=== PATIENT | male | born 1930 | race Caucasian/White ===

== ENCOUNTER → 2017-11-12 | Outpatient (CLI) | payer MEDICARE ==
[~2017-11-12] MED LIST: CELE200; CEPH500 PO; OXYACE5T PO; OXYACE7.5T PO; PRAV20; WARF6
== END | disposition home or self-care (01) ==
LOC: LAB SHORT 10:11 → PLD 10:11
DX: C44.629 Squamous cell carcinoma of skin of left upper limb, including shoulder (principal)
CPT/HCPCS: 88305

== ENCOUNTER → 2018-06-18 | Outpatient (CLI) | payer MEDICARE, OTHER ==
[~2018-06-18] MED LIST changes: +B-100 COMPLEX100 MG PO; +CEFD300 PO; +CELE200 PO; +FINA5 PO; +LOSA50 PO; +VIT1CAPS12 PO; +VITAMIN D22000 UNIT PO
[2018-06-18 12:52] LABS: BASOPHILS ABSOLUTE AUTO 0.02 K/mm3 (0.00-0.23); BASOPHILS PERCENT AUTO 0 % (0-2); EOSINOPHILS ABSOLUTE AUTO 0.06 K/mm3 (0.00-0.68); EOSINOPHILS PERCENT AUTO 1 % (0-6); Hematocrit 43.2 % (37.0-53.0); Hemoglobin 14.6 g/dL (13.5-17.5); IMMATURE GRAN ABSOLUTE AUTO 0.01 K/mm3 (0.00-0.10); IMMATURE GRAN PERCENT AUTO 0 % (0-1); LYMPHOCYTES ABSOLUTE AUTO 1.03 K/mm3 (0.84-5.20); LYMPHOCYTES PERCENT AUTO 21 % (21-46); MONOCYTES ABSOLUTE AUTO 0.63 K/mm3 (0.16-1.47); MONOCYTES PERCENT AUTO 13 % (4-13); Mean Corpuscular HGB 33.2 pg (26.0-34.0); Mean Corpuscular HGB Conc 33.8 g/dL (31.5-36.5); Mean Corpuscular Volume 98 fL (80-100); Mean Platelet Volume 12.2 fL (9.1-12.4); NEUTROPHILS PERCENT AUTO 65 % (41-73); Platelet Count 119 K/mm3 (150-400); RDW Coefficient Variation 13.6 % (11.7-14.2); RDW Standard Deviation 49.1 fL (35.1-46.3); White Blood Cell Count 4.95 K/mm3 (4.00-11.30)
[2018-06-18 12:56] LABS: Anion Gap 7 mmol/L (6-16); Blood Urea Nitrogen 21 mg/dL (8-24); Bun/Creatinine Ratio 19.1 (12.0-20.0); CO2, Blood 27 mmol/L (21-32); Calcium, Blood 8.5 mg/dL (8.5-10.1); Chloride, Blood 102 mmol/L (98-108); Glomerular Filtration Rate >60 (60-); Glucose, Blood 95 mg/dL (70-99); Sodium, Blood 136 mmol/L (136-145)
[2018-06-18 13:50] LABS: International Normalized Ratio 2.28; Prothrombin Time Results 22.4 Sec (9.7-11.5)
== END | disposition home or self-care (01) ==
LOC: LAB SHORT 12:46 → LAB EV 12:46
PROVIDERS: Family Medicine
DX: Z79.01 Long term (current) use of anticoagulants (principal); Z51.81 Encounter for therapeutic drug level monitoring; J18.0 Bronchopneumonia, unspecified organism
CPT/HCPCS: 80048; 85025; 85610; 87040

== ENCOUNTER → 2018-06-20 | Outpatient (CLI) | payer MEDICARE, OTHER ==
[2018-06-20 12:45] LABS: International Normalized Ratio 2.5; Prothrombin Time Results 24.4 Sec (9.7-11.5)
== END | disposition home or self-care (01) ==
LOC: LAB EV 12:01 → LAB SHORT 12:01
PROVIDERS: Family Medicine
DX: J18.0 Bronchopneumonia, unspecified organism (principal)
CPT/HCPCS: 85610; 85730

== ENCOUNTER 2018-06-22 11:28 | Inpatient (IN) | payer MEDICARE, OTHER ==
[~2018-06-22] VITALS: Ht 172.7 cm; Wt 82.5 kg
[~2018-06-22 11:28] MED LIST changes: -CEFD300 PO
[2018-06-22 12:11] LABS: BASOPHILS ABSOLUTE AUTO 0.02 K/mm3 (0.00-0.23); BASOPHILS PERCENT AUTO 1 % (0-2); EOSINOPHILS ABSOLUTE AUTO 0.19 K/mm3 (0.00-0.68); EOSINOPHILS PERCENT AUTO 4 % (0-6); Hematocrit 45.8 % (37.0-53.0); Hemoglobin 14.8 g/dL (13.5-17.5); IMMATURE GRAN ABSOLUTE AUTO 0.01 K/mm3 (0.00-0.10); IMMATURE GRAN PERCENT AUTO 0 % (0-1); LYMPHOCYTES ABSOLUTE AUTO 1.83 K/mm3 (0.84-5.20); LYMPHOCYTES PERCENT AUTO 43 % (21-46); MONOCYTES ABSOLUTE AUTO 0.69 K/mm3 (0.16-1.47); MONOCYTES PERCENT AUTO 16 % (4-13); Mean Corpuscular HGB 32.9 pg (26.0-34.0); Mean Corpuscular HGB Conc 32.3 g/dL (31.5-36.5); Mean Platelet Volume 12.1 fL (9.1-12.4); NEUTROPHILS ABSOLUTE AUTO 1.57 K/mm3 (1.96-9.15); NEUTROPHILS PERCENT AUTO 36 % (41-73); Platelet Count 131 K/mm3 (150-400); RDW Coefficient Variation 13.3 % (11.7-14.2); RDW Standard Deviation 50.2 fL (35.1-46.3); White Blood Cell Count 4.31 K/mm3 (4.00-11.30)
[2018-06-22 12:14] LABS: Mean Corpuscular Volume 102 fL (80-100)
[2018-06-22 12:26] LABS: International Normalized Ratio 2.65; Prothrombin Time Results 25.7 Sec (9.7-11.5)
[2018-06-22 12:33] LABS: Alanine Aminotransfer (ALT/SGP 24 U/L (12-78); Albumin, Blood 3.2 g/dL (3.4-5.0); Albumin/Globulin Ratio 0.9 (0.8-1.8); Alk Phos 53 U/L (50-136); Anion Gap 7 mmol/L (6-16); Aspartate Aminotrans (AST/SGOT 24 U/L (12-37); Bilirubin, Total 0.6 mg/dL (0.1-1.0); Blood Urea Nitrogen 17 mg/dL (8-24); Bun/Creatinine Ratio 21.5 (12.0-20.0); CO2, Blood 26 mmol/L (21-32); Calcium, Blood 8.7 mg/dL (8.5-10.1); Chloride, Blood 107 mmol/L (98-108); Creatinine, Blood 0.79 mg/dL (0.60-1.20); Globulin, Blood 3.7 g/dL (2.2-4.0); Glomerular Filtration Rate >60 (60-); Glucose, Blood 84 mg/dL (70-99); Potassium, Blood 4.2 mmol/L (3.5-5.5); Sodium, Blood 140 mmol/L (136-145); Total Protein, Blood 6.9 g/dL (6.4-8.2)
[2018-06-22 12:38] LABS: Source, Urine Clean Catch
[2018-06-22 12:43] LABS: Appearance, Urine Clear (Clear); Bilirubin, Urine Neg (Neg); Blood, Urine Neg (Neg); Color, Urine Pale Yellow (P-Yellow); Glucose Qualitative, Urine Neg (Neg); Ketones, Urine Neg (Neg); Leukocyte Esterase, Urine Neg (Neg); Nitrite, Urine Neg (Neg); Protein, Urine Neg (Neg); Urobilinogen, Urine NORM (Normal); pH, Urine 6.5 (5.0-8.0)
[2018-06-22] MEDS ORDERED: CEFD300 PO (13:18)
--- NOTE | 2018-06-22 18:59 | NUR ---
SHIFT SUMMARY PT A&OX3, VSS, NPO. SURGICAL CONSULT COMPLETE; SIGNED SG/ ANES CONSENTS. RECEIVED 3 UNITS PLATELETS. DENIES PAIN. DENIES N&V. ABX INFUSED, NS @ 100 MLS/HR. WCTM & TX PER EMAR UNTIL REPORT GIVEN TO ONCOMING NOC RN.
[2018-06-22 19:20] LABS: International Normalized Ratio 1.75
[2018-06-22 19:33] LABS: Prothrombin Time Results 17.6 Sec (9.7-11.5)
--- NOTE | 2018-06-22 20:03 | NUR ---
06/22/182002 Curt Brown PT ON SCHEDULED ANTIBIOTICS AND RECIEVED PRIOR TO ARRIVAL TO OR.
--- NOTE | 2018-06-22 21:28 | NUR ---
PT TO ICU 2 FROM OR AT 2112. PT ARRIVED ON 10L 02 VIA NON-REBREATHER. PT HAS AUDIBLE WHEEZING THROUGHOUT. RT AT BEDSIDE ADMINISTERING BREATHING TREATMENT. PT IS AROUSABLE AND ABLE TO MOVE ALL 4 EXTREMETIES. PT DENIES PAIN AT THIS TIME. VSS. PHONE CALL PLACED TO HOSPITALIST FOR ORDER OF LASIX FOR FLUID OVERLOAD.
--- NOTE | 2018-06-23 | NUR ---
RECEIVED HAND OFF FROM ELSA RANDALL IN ICU USING SBAR. , BRYANT AND DAUGHTER, LATOSHA ALREADY AT BEDSIDE, UPDATE GIVE TO THEM PER NURSING. TRANSPORTED TO ROOM 216 VIA BED. LYING IN SEMI FOWLERS WITH EYES CLOSED, OPENS EYES SPONTANEOUSLY. A/O X3, PEREZ, FOLLOWS ALL COMMANDS. ORIENTED TO ROOM, CALL SYSTEM, AND POC, VOICES UNDERSTANDING. RESPIRATIONS EVEN AND UNLABORED WITH AUDIBLE WHEEZING NOTED ON O2 AT 2L/NC. LUNG SOUNDS COARSE AND WHEEZY IN ALL ANGUIANO AND DIMINISHED IN BASES BILATERALLY. ANDOMEN FLAT AND NONDISTENDED. HYPOACTIVE AND DISTANT BOWEL SOUNDS NOTED IN ALL QUADS. MIDLINE INCISION COVERED WITH PROVENA WOUND VAC SYSTEN IS PATENT, DRESSING AND SPOUNGE ARE FLAT AGAINST SKIN. MENENDEZ CATH DRAINING LARGE AMOUNT OF CLEAR YELLOW URINE TO GRAVITY. SCD'D TO BLE. PAIN TO BE MONITORED AND TREATED PRN PER EMAR. SPLINTING TECHNIQUE INSTRUCTIONS GIVEN, VOICES UNDERSTANDING. ORAL CARE SET UP AT BEDSIDE, SPOUSE AND PT INSTRUCTED TO CALL WITH NEEDS. SAFETY MEASURES IN PLACE. WILL CONTINUE TO MONITOR.
[2018-06-23 04:42] LABS: BASOPHILS ABSOLUTE AUTO 0.01 K/mm3 (0.00-0.23); BASOPHILS PERCENT AUTO 0 % (0-2); EOSINOPHILS PERCENT AUTO 0 % (0-6); Hematocrit 42.6 % (37.0-53.0); IMMATURE GRAN ABSOLUTE AUTO 0.03 K/mm3 (0.00-0.10); IMMATURE GRAN PERCENT AUTO 0 % (0-1); LYMPHOCYTES ABSOLUTE AUTO 0.67 K/mm3 (0.84-5.20); LYMPHOCYTES PERCENT AUTO 7 % (21-46); MONOCYTES ABSOLUTE AUTO 0.63 K/mm3 (0.16-1.47); MONOCYTES PERCENT AUTO 7 % (4-13); Mean Corpuscular HGB 33.2 pg (26.0-34.0); Mean Corpuscular HGB Conc 32.9 g/dL (31.5-36.5); Mean Corpuscular Volume 101 fL (80-100); Mean Platelet Volume 12.2 fL (9.1-12.4); NEUTROPHILS ABSOLUTE AUTO 8.18 K/mm3 (1.96-9.15); NEUTROPHILS PERCENT AUTO 86 % (41-73); Platelet Count 119 K/mm3 (150-400); RDW Coefficient Variation 13.2 % (11.7-14.2); RDW Standard Deviation 48.9 fL (35.1-46.3); Red Blood Cell Count 4.22 M/mm3 (4.30-5.90); White Blood Cell Count 9.52 K/mm3 (4.00-11.30)
[2018-06-23 05:01] LABS: International Normalized Ratio 2.01
[2018-06-23 05:04] LABS: Alanine Aminotransfer (ALT/SGP 23 U/L (12-78); Albumin, Blood 3.1 g/dL (3.4-5.0); Albumin/Globulin Ratio 0.9 (0.8-1.8); Alk Phos 54 U/L (50-136); Anion Gap 10 mmol/L (6-16); Aspartate Aminotrans (AST/SGOT 26 U/L (12-37); Bilirubin, Total 0.7 mg/dL (0.1-1.0); Blood Urea Nitrogen 18 mg/dL (8-24); CO2, Blood 25 mmol/L (21-32); Calcium, Blood 8.5 mg/dL (8.5-10.1); Chloride, Blood 105 mmol/L (98-108); Creatinine, Blood 0.75 mg/dL (0.60-1.20); Globulin, Blood 3.5 g/dL (2.2-4.0); Glomerular Filtration Rate >60 (60-); Glucose, Blood 150 mg/dL (70-99); Potassium, Blood 4.3 mmol/L (3.5-5.5); Sodium, Blood 140 mmol/L (136-145); Total Protein, Blood 6.6 g/dL (6.4-8.2)
--- NOTE | 2018-06-23 06:13 | NUR ---
SITTNG UP IN CHAIR AT BEDSIDE PER HIS REQUEST. ORDERED ACTIVITY IS UP AD MEGHANN. IS AT BEDSIDE, REITERATED NEED TO USE 10X Q 1HR WA, VOICES UNDERSTANDING. MIDLINE INCISION COVERED WITH WOUND VAC IS C/D/I, NO DRAINAGE NOTED. STATES CURRENT PAIN OF 4/10 IS MANAGABLE AFTER AMBULATION. HAS BEEN MEDICATED FOR PAIN 2X THIS SHIFT. REITERATED NEED TO SPLINT ABDOMEN WHEN COUGHING, VOICES UNDERSTANDING. SAFETY MEASURES IN PLACE. WILL GIVE HAND OFF TO ONCOMING SHIFT USING SBAR.
--- NOTE | 2018-06-23 19:23 | NUR ---
SHIFT SUMMARY PT HAS BEEN ENCOURAGED AND EDUCATED TO USE IS AND FLUTTER VALVE EVERY HOUR. PAIN HAS BEEN MANAGED WITH FENTANYL DROP WIRE STRINGER. PT IS A 1 ASSIST WHEN OOB. FAMILY HAS BEEN AT THE BEDSIDE T/O THE DAY. PT HAS REQUIRED CONTINUED EDUCATION REGARDING DROP WIRE STRINGER AND FLUTTER VALVE. VSS. REPORT GIVEN TO SERENITY HUNTER.
--- NOTE | 2018-06-24 06:27 | NUR ---
SHIFT SUMMARY PT IS POD 2 SIGMOID COLECTOMY. PREVENA WOUND VAC TO MIDLINE ABD, FOAM COMPRESSED, NO LEAKS NOTED. PT C/O INCISIONAL PAIN WITH MOVEMENT AND COUGHING BUT HE HAS NOT USED HIS WEASAND TRIMMER MUCH, EVEN WITH REPEATED INSTRUCTIONS. HE DOESN'T SEEM TO COGNITIVELY BE ABLE TO HANDLE A WEASAND TRIMMER. PT MAINTAINED A CLEAR LIQUID DIET LAST NIGHT, WILL ADVANCE PER DR. JO, NO ADVANCEMENT ORDERS OF YET. PT HAS BT BUT HAS NOT PASSED FLATUS YET. 1 ASSIST UP W/ FWW AND GB. PT'S FAMILY STAYED THE ROOM LAST NIGHT. WILL CTM UNTIL PASS TO NEXT SHIFT.
--- NOTE | 2018-06-24 19:36 | NUR ---
SHIFT SUMMARY PT HAS DONE WELL TODAY. AMBULATED IN HALLWAY x 2. UP IN CHAIR SEVERAL TIMES. PT UNSURE WHETHER HE IS PASSING GAS. VOIDED 3 TIMES.
--- NOTE | 2018-06-25 02:12 | NUR ---
ASSISTED TO BATHROOM AFTER PASSING GAS USING FWW. STATES THAT MD TOLD HIM TO GET TO THE BATHROOM IMMEDIATELY IF HE STARTED PASSING GAS. UNABLE TO HAVE BM AT THIS TIME. STATES THAT HE PASSED MORE GAS AND URINATED. ASSISTED BACK TO BED, TOLERATED WELL. SAFETY MEASURES IN PLACE. WILL CONTINUE TO MONITOR.
--- NOTE | 2018-06-25 05:37 | NUR ---
LYING IN SEMI FOWLERS WITH EYES CLOSED. HAS HAD NO C/O PAIN THIS SHIFT. HAS STARTED TO PASS COPIOUS AMOUNTS OF GAS. AMBULATED TO COMMODE X2 WITHOUT RESULTS. HAD X1 EPISODE OF SOB, PRN BREATHING TREATMENT GIVEN PER RT AND WAS PLACED ON CPAP FOR AN HOUR OR SO, TOLERATED WELL. DENIES FURTHER NEEDS OR WANTS AT THIS TIME. SAFETY MEASURES IN PLACE. WILL GIVE HAND OFF TO ONCOMING SHIFT USING SBAR.
--- NOTE | 2018-06-25 18:05 | NUR ---
SHIFT SUMMARY PT STARTED OFF VERY MOTIVATED. UP IN CHAIR, WALKED IN HALLWAY, BUT AFTER A FULL LQ LUNCH HAS BEEN DISTENDED AND UNCOMFORTABLE. REGLAN STARTED AND DINNER TRAY HELD. PT CONTINUES TO TAKE WATER WELL. 3 WALKS IN HALLWAY OVER 200 FT EACH. UP IN CHAIR 4-5 TIMES. PASSED MINIMAL GAS THIS AM. SURGEON AWARE.
[2018-06-26 04:41] LABS: BASOPHILS ABSOLUTE AUTO 0.02 K/mm3 (0.00-0.23); BASOPHILS PERCENT AUTO 0 % (0-2); EOSINOPHILS ABSOLUTE AUTO 0.12 K/mm3 (0.00-0.68); EOSINOPHILS PERCENT AUTO 2 % (0-6); Hematocrit 42.3 % (37.0-53.0); Hemoglobin 14.1 g/dL (13.5-17.5); IMMATURE GRAN ABSOLUTE AUTO 0.04 K/mm3 (0.00-0.10); IMMATURE GRAN PERCENT AUTO 1 % (0-1); LYMPHOCYTES ABSOLUTE AUTO 0.94 K/mm3 (0.84-5.20); LYMPHOCYTES PERCENT AUTO 12 % (21-46); MONOCYTES ABSOLUTE AUTO 0.87 K/mm3 (0.16-1.47); MONOCYTES PERCENT AUTO 11 % (4-13); Mean Corpuscular HGB 32.6 pg (26.0-34.0); Mean Corpuscular HGB Conc 33.3 g/dL (31.5-36.5); Mean Platelet Volume 11.9 fL (9.1-12.4); NEUTROPHILS PERCENT AUTO 74 % (41-73); Platelet Count 160 K/mm3 (150-400); RDW Coefficient Variation 12.7 % (11.7-14.2); RDW Standard Deviation 45.7 fL (35.1-46.3); Red Blood Cell Count 4.33 M/mm3 (4.30-5.90); White Blood Cell Count 7.79 K/mm3 (4.00-11.30)
[2018-06-26 04:51] LABS: Mean Corpuscular Volume 98 fL (80-100)
[2018-06-26 05:08] LABS: Albumin, Blood 2.9 g/dL (3.4-5.0); Anion Gap 9 mmol/L (6-16); Blood Urea Nitrogen 18 mg/dL (8-24); Bun/Creatinine Ratio 25.5 (12.0-20.0); CO2, Blood 24 mmol/L (21-32); Calcium, Blood 8.7 mg/dL (8.5-10.1); Chloride, Blood 104 mmol/L (98-108); Creatinine, Blood 0.71 mg/dL (0.60-1.20); Glomerular Filtration Rate >60 (60-); Glucose, Blood 118 mg/dL (70-99); Phosphorus, Blood 2.7 mg/dL (2.5-4.9); Potassium, Blood 3.8 mmol/L (3.5-5.5); Sodium, Blood 137 mmol/L (136-145)
--- NOTE | 2018-06-26 06:39 | NUR ---
LYING IN SEMI FOWLERS WITH EYES CLOSED. HAS HAD NO C/O PAIN THIS SHIFT, JUST ABD DISCOMFORT FROM DISTENTION. HAS STARTED TO PASS GAS THIS MORNING. HAD X2 EPISODE OF SOB, PRN BREATHING TREATMENT GIVEN PER RT TWICE AND WAS PLACED ON CPAP FOR AN HOUR THIS SHIFT, TOLERATED WELL BUT WOULD NOT COMPLY. DENIES FURTHER NEEDS OR WANTS AT THIS TIME. SAFETY MEASURES IN PLACE. WILL GIVE HAND OFF TO ONCOMING SHIFT USING SBAR.
--- NOTE | 2018-06-26 17:12 | NUR ---
SHIFT SUMMARY PT TOLERATING WATER WITHOUT DIFF. PT NOW PASSING GAS AND HAD SMALL AMT OF LOOSE STOOL. PT REPORTS STOMACH FEELING MUCH BETTER. PT VOIDING. ENC MOBILITY WITH ASSIST. FAMILY IN ROOM T/O DAY. PT NOW ON RA AT THIS TIME. PT PLEASANT AND COOP. WILLIAN GAYTAN TO SEE PT. PT AMBULATING IN HALLWAY WITH ASSIST. CONT BIOX IN PLACE, FAMILY IN ROOM.
--- NOTE | 2018-06-27 05:54 | NUR ---
RESP STATUS: PT LUNGS REMAIN COARSE T/O, W/AUDIBLE WHEEZING IN UPPER AIRWAY. PT ONLY REP MINIMAL RELIEF AFTER RT TX, NO SIG CHANGES TO RESP EFFORT AFTER TX. CALL PLACED TO MD, PT RESP STATUS AND I/O REV, NEW ORDER FOR IV LASIX REC.
--- NOTE | 2018-06-27 06:32 | NUR ---
POD 5 S/P ARTI COLECTOMY. DRESSING CDI W/BRUISING NOTED. PT VSS T/O NIGHT, SATS >90% ON RA, W/2LO2 NC WHILE SLEEPING. LUNGS COARSE AND VERY WHEEZY W/MINIMAL IMPROVEMENT AFTER RT TX. LASIX GIVEN THIS AM. PT DENIED N/V/PAIN, DOES REP ACID REFLUX. PT IS DRINKING ONLY SMALL AMT OF WATER R/T REFLUX. AMB FIRM/DISTENDED, PT IS PASSING FLATUS, NO BM THIS SHIFT. BLADDER SCAN DONE READING 124ML, PT REFUSING TO USE URINAL, IMPORTANCE OF MEASURING OUTPUT REINFIRCED, PT AGREEABLE THIS AM AFTER MUCH DISCUSSION. PT ANXIOUS AT TIMES, EXTRA SUPPORT AND EDUCATION PROVIDED PRN T/O NIGHT. PT USING CALL LIGHT FOR ASSISTANCE, WILL CONT TO MONITOR UNTIL REP GIVEN TO ONCOMING RN.
--- NOTE | 2018-06-27 08:34 | NUR ---
PT TO IMAGING
--- NOTE | 2018-06-27 09:48 | NUR ---
DR ARIAS HERE TO SEE PT. DISCUSSED PT'S STATUS, INCLUDING PICC/IVF, LS.
--- NOTE | 2018-06-27 12:00 | NUR ---
DR JO HERE TO SEE PT.
--- NOTE | 2018-06-27 12:18 | NUR ---
RT RECENTLY TO ROOM. PT REFUSING THERAPY AT THIS TIME.
--- NOTE | 2018-06-27 16:38 | NUR ---
WASTED SUPERVISOR CIGARETTE MAKING DEPARTMENT 32.4 MLS WITH OTHER RN Nevin
[2018-06-27 17:27] LABS: Adenovirus Not Detected (NOT DETECT); Bordetella pertussis Not Detected (NOT DETECT); Chlamydophila pneumoniae Not Detected (NOT DETECT); Coronavirus 229E Not Detected (NOT DETECT); Coronavirus HKU1 Not Detected (NOT DETECT); Coronavirus NL63 Not Detected (NOT DETECT); Coronavirus OC43 Not Detected (NOT DETECT); Human Metapneumovirus Not Detected (NOT DETECT); Human Rhinovirus/Enterovirus Not Detected (NOT DETECT); Influenza A Not Detected (NOT DETECT); Influenza A/2009-H1 Not Detected (NOT DETECT); Influenza A/H1 Not Detected (NOT DETECT); Influenza A/H3 Not Detected (NOT DETECT); Influenza B Not Detected (NOT DETECT); Mycoplasma pneumoniae Not Detected (NOT DETECT); Parainfluenza Virus 1 Not Detected (NOT DETECT); Parainfluenza Virus 2 Not Detected (NOT DETECT); Parainfluenza Virus 3 Not Detected (NOT DETECT); Parainfluenza Virus 4 Not Detected (NOT DETECT); Respiratory Syncytial Virus Not Detected (NOT DETECT)
--- NOTE | 2018-06-27 18:49 | NUR ---
SHIFT SUMMARY PT NOW RESTING QUIETLY. PT BEEN HAVING HEARTBURN/REFLUX OFF AND ON T/O DAY. PT BEEN UP WITH ASSIST AND AMBULATED IN HALLWAY WITH ASSIST TODAY. PT PASSING GAS. DR'S AWARE OF PT UNABLE TO OBTAIN PICC TODAY WELL DERMATOLOGY TEACHER. RT BEEN TO SEE PT. SWAB SENT PER ORDER. PT APPEARS TO BE FEELING BETTER THIS AFTERNOON PER FAMILY, PT MAINLY C/O REFLUX OFF AND ON. TELE BEING PLACED FOR PT RECIEVING IV METOPROLOL PER DR ARIAS. PT USING CALL LIGHT APPR. FAMILY PRESENT. PT AND FAMILY AGREE THAT PT HAS NOT NEEDED ANY ANXIETY MEDICATION TODAY.
--- NOTE | 2018-06-27 18:59 | NUR ---
TELE VERIFIED AND IN PLACE.
[2018-06-28 05:32] LABS: BASOPHILS ABSOLUTE AUTO 0.02 K/mm3 (0.00-0.23); BASOPHILS PERCENT AUTO 0 % (0-2); EOSINOPHILS PERCENT AUTO 0 % (0-6); Hematocrit 38.8 % (37.0-53.0); Hemoglobin 12.9 g/dL (13.5-17.5); IMMATURE GRAN ABSOLUTE AUTO 0.13 K/mm3 (0.00-0.10); IMMATURE GRAN PERCENT AUTO 1 % (0-1); LYMPHOCYTES ABSOLUTE AUTO 0.85 K/mm3 (0.84-5.20); LYMPHOCYTES PERCENT AUTO 7 % (21-46); MONOCYTES ABSOLUTE AUTO 1.22 K/mm3 (0.16-1.47); MONOCYTES PERCENT AUTO 9 % (4-13); Mean Corpuscular HGB 32.3 pg (26.0-34.0); Mean Corpuscular HGB Conc 33.2 g/dL (31.5-36.5); Mean Corpuscular Volume 97 fL (80-100); Mean Platelet Volume 11.6 fL (9.1-12.4); NEUTROPHILS ABSOLUTE AUTO 10.88 K/mm3 (1.96-9.15); NEUTROPHILS PERCENT AUTO 83 % (41-73); Platelet Count 186 K/mm3 (150-400); RDW Coefficient Variation 12.7 % (11.7-14.2); RDW Standard Deviation 45.2 fL (35.1-46.3); Red Blood Cell Count 3.99 M/mm3 (4.30-5.90)
[2018-06-28 05:56] LABS: Alanine Aminotransfer (ALT/SGP 45 U/L (12-78); Albumin, Blood 2.8 g/dL (3.4-5.0); Albumin/Globulin Ratio 0.8 (0.8-1.8); Alk Phos 57 U/L (50-136); Anion Gap 10 mmol/L (6-16); Aspartate Aminotrans (AST/SGOT 54 U/L (12-37); Bilirubin, Total 0.9 mg/dL (0.1-1.0); Blood Urea Nitrogen 40 mg/dL (8-24); Bun/Creatinine Ratio 47.8 (12.0-20.0); CO2, Blood 22 mmol/L (21-32); Chloride, Blood 104 mmol/L (98-108); Creatinine, Blood 0.84 mg/dL (0.60-1.20); Globulin, Blood 3.5 g/dL (2.2-4.0); Glomerular Filtration Rate >60 (60-); Glucose, Blood 157 mg/dL (70-99); Magnesium, Blood 2.1 mg/dL (1.6-2.4); Phosphorus, Blood 2.6 mg/dL (2.5-4.9); Potassium, Blood 4.4 mmol/L (3.5-5.5); Sodium, Blood 136 mmol/L (136-145); Total Protein, Blood 6.3 g/dL (6.4-8.2); Triglycerides 76 mg/dL (30-160)
--- NOTE | 2018-06-28 07:27 | NUR ---
SHIFT SUMMARY PT A&O TO SELF T/O SHIFT; DISORIENTED DURING NIGHT TO PLACE AND SITUATION. PT SET OFF BED ALARM SEVERAL TIMES DURING NIGHT. SIDE RAILS X3 AND BED ALARM ON. POST COLECTOMY; MIDLINE ABD SITE CDI; SCANT DRAINAGE IN PREVENA WOUND VAC, SEAL INTACT. PT PASSING FLATUS; DENIES NAUSEA AND PAIN. ABD SOFT; BT X4; PT DENIES "HEART BURN." SCD'S TO BLE'S. O2 VIA NC. CONT. OXIMETRY IN PLACE. LS TIGHT, WHEEZEY AND DIM AT TIMES T/O SHIFT. TX PER RT. TELEMETRY IN IN PLACE; SR PER PRACTICAL MINISTRIES PROFESSOR. AT BEDSIDE DURING EVENING. IV GTT PER EMAR. UP TO CHAIR THIS AM.
--- NOTE | 2018-06-28 18:41 | NUR ---
SHIFT SUMMARY PT HAS TOLERATED A CLEAR LIQUID DIET THIS SHIFT. HE HAS AMBULATED WITH ASSISTANCE IN THE HALWAYS. PT REPORTS HE IS PASSING FLATUS. PICC LINE PLACED AND CPN STARTED TODAY. VSS. WILL CONTINUE TO MONITOR UNTIL REPORT TO ONCOMING RN.
[2018-06-29 10:46] LABS: Anion Gap 6 mmol/L (6-16); Blood Urea Nitrogen 35 mg/dL (8-24); Bun/Creatinine Ratio 42.8 (12.0-20.0); CO2, Blood 26 mmol/L (21-32); Calcium, Blood 8.8 mg/dL (8.5-10.1); Chloride, Blood 107 mmol/L (98-108); Creatinine, Blood 0.82 mg/dL (0.60-1.20); Glomerular Filtration Rate >60 (60-); Glucose, Blood 106 mg/dL (70-99); Phosphorus, Blood 3.1 mg/dL (2.5-4.9); Potassium, Blood 4.6 mmol/L (3.5-5.5); Sodium, Blood 139 mmol/L (136-145)
--- NOTE | 2018-06-29 19:07 | NUR ---
SHIFT SUMMARY PT HAS BEEN AMBULATING WITH 1 ASSIST IN THE HALWAYS. HE IS TOLERATING A SMALL AMOUT OF FULL LIQUIDS. PT HAD A LARGE BM TODAY. FAMILY AT THE BEDSIDE. VSS. REPORT GIVEN TO JOHN HUNTER.
[2018-06-30 04:51] LABS: BASOPHILS ABSOLUTE AUTO 0.02 K/mm3 (0.00-0.23); BASOPHILS PERCENT AUTO 0 % (0-2); EOSINOPHILS PERCENT AUTO 0 % (0-6); Hematocrit 36.2 % (37.0-53.0); Hemoglobin 11.9 g/dL (13.5-17.5); IMMATURE GRAN ABSOLUTE AUTO 0.15 K/mm3 (0.00-0.10); IMMATURE GRAN PERCENT AUTO 1 % (0-1); LYMPHOCYTES ABSOLUTE AUTO 0.56 K/mm3 (0.84-5.20); LYMPHOCYTES PERCENT AUTO 5 % (21-46); MONOCYTES ABSOLUTE AUTO 1.17 K/mm3 (0.16-1.47); MONOCYTES PERCENT AUTO 11 % (4-13); Mean Corpuscular HGB 33.1 pg (26.0-34.0); Mean Corpuscular HGB Conc 32.9 g/dL (31.5-36.5); Mean Corpuscular Volume 101 fL (80-100); NEUTROPHILS ABSOLUTE AUTO 8.79 K/mm3 (1.96-9.15); NEUTROPHILS PERCENT AUTO 82 % (41-73); Platelet Count 162 K/mm3 (150-400); RDW Coefficient Variation 13.1 % (11.7-14.2); RDW Standard Deviation 48.2 fL (35.1-46.3); White Blood Cell Count 10.69 K/mm3 (4.00-11.30)
[2018-06-30 05:13] LABS: Alanine Aminotransfer (ALT/SGP 101 U/L (12-78); Albumin, Blood 2.6 g/dL (3.4-5.0); Albumin/Globulin Ratio 0.8 (0.8-1.8); Alk Phos 55 U/L (50-136); Anion Gap 6 mmol/L (6-16); Aspartate Aminotrans (AST/SGOT 73 U/L (12-37); Bilirubin, Total 0.7 mg/dL (0.1-1.0); Blood Urea Nitrogen 30 mg/dL (8-24); Bun/Creatinine Ratio 42.1 (12.0-20.0); CO2, Blood 26 mmol/L (21-32); Calcium, Blood 8.7 mg/dL (8.5-10.1); Chloride, Blood 106 mmol/L (98-108); Creatinine, Blood 0.71 mg/dL (0.60-1.20); Globulin, Blood 3.2 g/dL (2.2-4.0); Glomerular Filtration Rate >60 (60-); Glucose, Blood 148 mg/dL (70-99); Potassium, Blood 4.7 mmol/L (3.5-5.5); Sodium, Blood 138 mmol/L (136-145); Total Protein, Blood 5.8 g/dL (6.4-8.2)
--- NOTE | 2018-06-30 07:23 | NUR ---
BEDSIDE REPORT WITH NIGHT NURSE.
--- NOTE | 2018-06-30 07:25 | NUR ---
PT MEDICATED WITH IV PROTONIX. PT STATES HE HAS SOME NAUSEA. PT DENIES PAIN. ASSESSMENT CHARTED. UP TO RR WITH WALKER.
--- NOTE | 2018-06-30 07:48 | NUR ---
PT UP AMB IN HALLS INDEPENDENTLY WITH WALKER.
--- NOTE | 2018-06-30 08:16 | NUR ---
PT BACK TO ROOM. SITTING UP IN CHAIR. PRUNE JUICE PROVIDED. BREAKFAST TRAY GIVEN. PT WATCHING TV.
--- NOTE | 2018-06-30 08:37 | NUR ---
PT SITTING UP IN CHAIR, WATCHING TV AND EATING BREAKFAST. PT MEDICATED WITH AM MEDS PER EMAR. CALL LIGHT IN REACH. PT DENIES NEEDS.
--- NOTE | 2018-06-30 09:30 | NUR ---
PT IN BED AT THIS TIME. APPEARS TO BE SLEEPING. RESP EVEN AND NON LABORED.
--- NOTE | 2018-06-30 10:15 | NUR ---
DR MCDUFFIE TO ROOM. PLAN TO CONSULT WITH DC PLANNING TODAY.
--- NOTE | 2018-06-30 10:30 | NUR ---
BRIGETTE HAILE WITH DISCHARGE PLANNING TO ROOM TO DISCUSS OPTIONS FOR HOME HEALTH.
--- NOTE | 2018-06-30 11:20 | NUR ---
DR ARIAS TO ROOM. PLAN TO ADVANCE TO REGULAR DIET, DC TPN AFTER CURRENT BAG. AND RE-EVAL TOMORROW.
--- NOTE | 2018-06-30 11:23 | NUR ---
PT WORKING WITH OT. BACON IN HALLS.
--- NOTE | 2018-06-30 12:26 | NUR ---
PT EATING LUNCH. AT BEDSIDE.
--- NOTE | 2018-06-30 13:26 | NUR ---
PT UP TO RR WITH ASSISTANCE OF OTHER STAFF. USED WALKER.
--- NOTE | 2018-06-30 14:30 | NUR ---
PT SLEEPING, NADN. RESP EVEN AND NON LABORED.
--- NOTE | 2018-06-30 16:26 | NUR ---
PT ASKING FOR SHOWER. EDDIE TO FACILITATE. PT FAMILY CONCERNED ABOUT PT NUTRITION NOW THAT TPN STOPPED. DISCHARGE RN CONSULT PLACED. PT DENIES PAIN AT THIS TIME.
--- NOTE | 2018-06-30 16:30 | NUR ---
PT SHOWERED WITH ASSISTANCE OF EDDIE. LINENS CHANGED, AND BED CLEANED AT THIS TIME.
--- NOTE | 2018-06-30 16:59 | NUR ---
PT MEDICATED PER EMAR WITH PROTONIX AND ROCEPHIN. PT OFFERED ZOFRAN PRIOR TO DINNER BUT PT DECLINED.
--- NOTE | 2018-06-30 17:50 | NUR ---
PT SITTING UP ON SIDE OF BED FOR DINNER. FAMILY PRESENT. ABX COMPLETE.
--- NOTE | 2018-06-30 18:15 | NUR ---
PT BACK TO BED AFTER EATING AND USING RR. VOIDED. PT DENIES PAIN. STATES HE HAS SOME HEART BURN. FAMILY AT BEDSIDE.
--- NOTE | 2018-07-01 04:37 | NUR ---
SHIFT SUMMARY: PT POD 8 FOR SIGMOID VOLVULUS. A&O X4. VS WNL. RECIEVING BREATHING TX'S, SATS ABOVE 91% ON RA. DENIES PAIN T/O SHIFT AND ANY N/V. ADVANCED TO REG DIET. SML AMT OF PO INTAKE OVER NIGHT. OOB TO BATHROOM W/FWW. NICOLETTE ACTIVITY WELL. RESTING MOST OF SHIFT.
[2018-07-01] MEDS ORDERED: ALBU90OI INH (13:29)
[2018-07-01] MEDS ORDERED: ACET325 PO (13:29)
[2018-07-01] MEDS ORDERED: BUDE6HFA INH (13:30)
[2018-07-01] MEDS ORDERED: OMEPRAZOLE MAGN20 MG PO (13:31)
[2018-07-01] MEDS ORDERED: METO25ER PO (13:31)
[2018-07-01] MEDS ORDERED: GUAI600T33 PO (14:42)
--- NOTE | 2018-07-01 14:43 | NUR ---
DISCHARGE PT DISCHARGED HOME WITH [facility]. PT AND SPOUSE EDUCATED ON AND RECEIVED PRINTED DC INSTRUCTIONS AND VERBALIZED AN UNDERSTANDING. F/U APPTS SCHEDULED. NEW RX FAXED TO [facility] DC[facility] BY JC RN. ALL PERSONAL BELONGINGS SENT WITH PT. PT ESCORTED OUT VIA W/C.
== END 2018-07-01 13:45 | disposition home health service (06) | DRG 329 ==
LOC: ER 11:28 → SURS 13:33
PROVIDERS: Family Medicine; Hospitalist; Physician Assistant; Surgery; ADMIT Student in an Organized Health Care Education/Training Program
PROC: 0DNN0ZZ Release Sigmoid Colon, Open Approach (ICD-10-PCS; 2018-06-22)
PROC: 0DBN0ZZ Excision of Sigmoid Colon, Open Approach (ICD-10-PCS; principal; 2018-06-22 16:15)
PROC: 3E0336Z Introduction of Nutritional Substance into Peripheral Vein, Percutaneous Approach (ICD-10-PCS; 2018-06-26)
PROC: 02HV33Z Insertion of Infusion Device into Superior Vena Cava, Percutaneous Approach (ICD-10-PCS; 2018-06-26)
DX: K56.2 Volvulus (principal); J18.9 Pneumonia, unspecified organism; K56.7 Ileus, unspecified; I10 Essential (primary) hypertension; K21.9 Gastro-esophageal reflux disease without esophagitis; Z86.718 Personal history of other venous thrombosis and embolism; Z79.01 Long term (current) use of anticoagulants; Z86.711 Personal history of pulmonary embolism; J20.9 Acute bronchitis, unspecified; N40.0 Benign prostatic hyperplasia without lower urinary tract symptoms; R27.0 Ataxia, unspecified
CPT/HCPCS: 36415; 36569; 71046; 74022; 74176; 80048; 80053; 80069; 81003; 82947; 83690; 83735; 83880; 84100; 84478; 85025; 85610; 85730; 86900; 86901; 87070; 87205; 87486; 87581; 87633; 87798; 88307; 93005; 93010; 94640; 94660; 94760; 94762; 97110; 97116; 97162; 97167; 97530; 97535; 99285-25; C1751; C9113; J0360; J0696; J1100; J1170; J1650; J1885; J1940; J2060; J2250; J2405; J2765; J2920; J3010; J7030; J7050; J7626; P9059

== ENCOUNTER 2018-07-25 15:14 | Emergency (ER) | payer MEDICARE, OTHER ==
[~2018-07-25] VITALS: Ht 175.3 cm; Wt 78.9 kg
[~2018-07-25 15:14] MED LIST changes: +ACET325 PO; +ALBU90OI INH; +BUDE6HFA INH; +CEFD300 PO; +Colace250 MG PO; +GUAI600T33 PO; +METO25ER PO; +MIRALAX17 GM; +OMEPRAZOLE MAGN20 MG PO; +WARF6 PO
[2018-07-25] MEDS ORDERED: Augmentin 875-1 EACH PO (16:41)
[2018-07-25] MEDS ORDERED: TAMS.4ER PO (16:41)
[2018-07-25 17:00] LABS: BASOPHILS ABSOLUTE AUTO 0.04 K/mm3 (0.00-0.23); BASOPHILS PERCENT AUTO 1 % (0-2); EOSINOPHILS ABSOLUTE AUTO 0.42 K/mm3 (0.00-0.68); EOSINOPHILS PERCENT AUTO 6 % (0-6); Hematocrit 39.3 % (37.0-53.0); Hemoglobin 12.8 g/dL (13.5-17.5); IMMATURE GRAN ABSOLUTE AUTO 0.03 K/mm3 (0.00-0.10); IMMATURE GRAN PERCENT AUTO 1 % (0-1); LYMPHOCYTES ABSOLUTE AUTO 2.68 K/mm3 (0.84-5.20); LYMPHOCYTES PERCENT AUTO 41 % (21-46); MONOCYTES ABSOLUTE AUTO 1.03 K/mm3 (0.16-1.47); MONOCYTES PERCENT AUTO 16 % (4-13); Mean Corpuscular HGB 33.1 pg (26.0-34.0); Mean Corpuscular HGB Conc 32.6 g/dL (31.5-36.5); Mean Corpuscular Volume 102 fL (80-100); Mean Platelet Volume 11.4 fL (9.1-12.4); NEUTROPHILS ABSOLUTE AUTO 2.38 K/mm3 (1.96-9.15); NEUTROPHILS PERCENT AUTO 36 % (41-73); Platelet Count 198 K/mm3 (150-400); RDW Coefficient Variation 14.4 % (11.7-14.2); RDW Standard Deviation 53.2 fL (35.1-46.3); Red Blood Cell Count 3.87 M/mm3 (4.30-5.90); White Blood Cell Count 6.58 K/mm3 (4.00-11.30)
[2018-07-25 17:19] LABS: Alanine Aminotransfer (ALT/SGP 20 U/L (12-78); Albumin/Globulin Ratio 0.9 (0.8-1.8); Alk Phos 65 U/L (50-136); Anion Gap 5 mmol/L (6-16); Aspartate Aminotrans (AST/SGOT 19 U/L (12-37); Bilirubin, Total 0.4 mg/dL (0.1-1.0); Blood Urea Nitrogen 28 mg/dL (8-24); Bun/Creatinine Ratio 26.7 (12.0-20.0); CO2, Blood 27 mmol/L (21-32); Calcium, Blood 9.1 mg/dL (8.5-10.1); Chloride, Blood 107 mmol/L (98-108); Creatinine, Blood 1.05 mg/dL (0.60-1.20); Globulin, Blood 3.4 g/dL (2.2-4.0); Glomerular Filtration Rate >60 (60-); Glucose, Blood 92 mg/dL (70-99); Potassium, Blood 4.7 mmol/L (3.5-5.5); Sodium, Blood 139 mmol/L (136-145); Total Protein, Blood 6.4 g/dL (6.4-8.2)
[2018-07-25] MEDS ORDERED: CEPH500 PO (17:46)
== END 2018-07-25 18:28 | disposition home or self-care (01) ==
LOC: ER 15:14
PROVIDERS: Physician Assistant
DX: T81.42XA Infection following a procedure, deep incisional surgical site, initial encounter (principal); L02.211 Cutaneous abscess of abdominal wall; L03.311 Cellulitis of abdominal wall; Z88.2 Allergy status to sulfonamides; Z88.1 Allergy status to other antibiotic agents; Z79.899 Other long term (current) drug therapy; Z79.01 Long term (current) use of anticoagulants; I25.10 Atherosclerotic heart disease of native coronary artery without angina pectoris; J45.909 Unspecified asthma, uncomplicated
CPT/HCPCS: 36415; 74177; 80053; 85025; 87070; 87075; 87076; 87185; 87205; 96365-59; 99284-25; J0690; Q9967

== ENCOUNTER → 2019-02-05 | Outpatient (CLI) | payer MEDICARE, OTHER ==
[~2019-02-05] MED LIST changes: +Augmentin 875-1 EACH PO; +TAMS.4ER PO
== END | disposition home or self-care (01) ==
LOC: LAB SHORT 14:58 → PLD 14:58
DX: I78.1 Nevus, non-neoplastic (principal); L57.0 Actinic keratosis; L57.8 Other skin changes due to chronic exposure to nonionizing radiation
CPT/HCPCS: 88305

== ENCOUNTER 2019-04-30 12:42 | Inpatient (IN) | payer MEDICARE, OTHER ==
[~2019-04-30] VITALS: Ht 175.3 cm; Wt 86.3 kg
[2019-04-30 13:25] LABS: BASOPHILS ABSOLUTE AUTO 0.03 K/mm3 (0.00-0.23); BASOPHILS PERCENT AUTO 0 % (0-2); EOSINOPHILS ABSOLUTE AUTO 0.01 K/mm3 (0.00-0.68); EOSINOPHILS PERCENT AUTO 0 % (0-6); Hematocrit 31.1 % (37.0-53.0); Hemoglobin 10.4 g/dL (13.5-17.5); IMMATURE GRAN ABSOLUTE AUTO 0.04 K/mm3 (0.00-0.10); IMMATURE GRAN PERCENT AUTO 1 % (0-1); LYMPHOCYTES ABSOLUTE AUTO 2.03 K/mm3 (0.84-5.20); LYMPHOCYTES PERCENT AUTO 23 % (21-46); MONOCYTES ABSOLUTE AUTO 0.66 K/mm3 (0.16-1.47); MONOCYTES PERCENT AUTO 8 % (4-13); Mean Corpuscular HGB 33.1 pg (26.0-34.0); Mean Corpuscular HGB Conc 33.4 g/dL (31.5-36.5); Mean Corpuscular Volume 99 fL (80-100); Mean Platelet Volume 11.8 fL (9.1-12.4); NEUTROPHILS ABSOLUTE AUTO 6.02 K/mm3 (1.96-9.15); NEUTROPHILS PERCENT AUTO 69 % (41-73); Platelet Count 184 K/mm3 (150-400); RDW Coefficient Variation 13.7 % (11.7-14.2); RDW Standard Deviation 49.2 fL (35.1-46.3); Red Blood Cell Count 3.14 M/mm3 (4.30-5.90); White Blood Cell Count 8.79 K/mm3 (4.00-11.30)
[2019-04-30 13:40] LABS: Troponin I 0.016 ng/mL (0.000-0.040)
[2019-04-30 13:42] LABS: Alanine Aminotransfer (ALT/SGP 14 U/L (12-78); Albumin, Blood 2.5 g/dL (3.4-5.0); Albumin/Globulin Ratio 0.9 (0.8-1.8); Alk Phos 38 U/L (50-136); Anion Gap 9 mmol/L (6-16); Aspartate Aminotrans (AST/SGOT 9 U/L (12-37); Bilirubin, Total 0.3 mg/dL (0.1-1.0); Blood Urea Nitrogen 67 mg/dL (8-24); Bun/Creatinine Ratio 74.2 (12.0-20.0); CO2, Blood 21 mmol/L (21-32); Calcium, Blood 8.4 mg/dL (8.5-10.1); Chloride, Blood 111 mmol/L (98-108); Globulin, Blood 2.9 g/dL (2.2-4.0); Glomerular Filtration Rate >60 (60-); Glucose, Blood 188 mg/dL (70-99); Potassium, Blood 4.5 mmol/L (3.5-5.5); Sodium, Blood 141 mmol/L (136-145); Total Protein, Blood 5.4 g/dL (6.4-8.2)
[2019-04-30 13:43] LABS: International Normalized Ratio 3.55; Prothrombin Time Results 35.4 Sec (9.7-11.5)
[2019-04-30] MEDS ORDERED: MAGCHL64ER (15:33)
--- NOTE | 2019-04-30 16:00 | NUR ---
PT ADMIT PT ADMIT VIA STRETCHER FROM ER FOR LOWER GI BLEED. TRANSFERED TO ICU BED SAFELY, VSS, SR HYPERTENSIVE AND FFP INFUSING. PIV STARTED AND AFEBRILE WITH PALP PULSES T/O AND COOL TO THE TOUCH. RA WITH SATS WNL AND CLEAR T/O. NPO AT THIS TIME ABD SOFT ROUND AND TENDER. SMALL BLACK TARRY STOOL. WILL CONT TO MONITOR.
[2019-04-30 20:43] LABS: Hematocrit 31.3 % (37.0-53.0); Hemoglobin 10.5 g/dL (13.5-17.5)
--- NOTE | 2019-04-30 21:35 | NUR ---
ASSUME CARE PT IN BED, ALERT AND ORIENTED WITH FAMILY AT BEDSIDE. ON ROOM AIR WITH SATS ABOVE 92%. PT COMPLAINTS OF GENERALIZED PAIN NOT IMPROVED WITH TYLENOL GIVEN BY PREVIOUS RN. SERVICE COUNTER CASHIER ORDERED TORADOL IV. GIVEN, PT SLEEPING COMFORTABLY. HR 100S, LUNG CLEAR WITH DIMINISHED BASES. PULSES STRONG RADIAL, WEAK PEDAL PULSES. AFEBRILE. WILL CONTINUE TO MONITOR..
--- NOTE | 2019-05-01 00:15 | NUR ---
MIDNIGHT BP PATIENT LAYING ON SIDE IN DEEP SLEEP, FAMILY ASKED NOT TO WAKE HIM D/T WHEN ADMITTED TO HOSPITAL LAST TIME. VSS, MAP OVER 60.
[2019-05-01 03:54] LABS: BASOPHILS ABSOLUTE AUTO 0.02 K/mm3 (0.00-0.23); BASOPHILS PERCENT AUTO 0 % (0-2); EOSINOPHILS PERCENT AUTO 0 % (0-6); Hematocrit 27.7 % (37.0-53.0); IMMATURE GRAN ABSOLUTE AUTO 0.07 K/mm3 (0.00-0.10); IMMATURE GRAN PERCENT AUTO 1 % (0-1); LYMPHOCYTES ABSOLUTE AUTO 1.24 K/mm3 (0.84-5.20); LYMPHOCYTES PERCENT AUTO 9 % (21-46); MONOCYTES ABSOLUTE AUTO 1.18 K/mm3 (0.16-1.47); MONOCYTES PERCENT AUTO 9 % (4-13); Mean Corpuscular HGB 32.4 pg (26.0-34.0); Mean Corpuscular HGB Conc 32.5 g/dL (31.5-36.5); Mean Corpuscular Volume 100 fL (80-100); NEUTROPHILS ABSOLUTE AUTO 10.83 K/mm3 (1.96-9.15); NEUTROPHILS PERCENT AUTO 81 % (41-73); Platelet Count 163 K/mm3 (150-400); RDW Coefficient Variation 13.9 % (11.7-14.2); RDW Standard Deviation 50.1 fL (35.1-46.3); Red Blood Cell Count 2.78 M/mm3 (4.30-5.90); White Blood Cell Count 13.34 K/mm3 (4.00-11.30)
[2019-05-01 04:07] LABS: International Normalized Ratio 1.58; Prothrombin Time Results 16.5 Sec (9.7-11.5)
[2019-05-01 04:15] LABS: Anion Gap 6 mmol/L (6-16); Blood Urea Nitrogen 64 mg/dL (8-24); CO2, Blood 24 mmol/L (21-32); Calcium, Blood 8.5 mg/dL (8.5-10.1); Chloride, Blood 115 mmol/L (98-108); Creatinine, Blood 1.05 mg/dL (0.60-1.20); Glomerular Filtration Rate >60 (60-); Glucose, Blood 133 mg/dL (70-99); Potassium, Blood 4.6 mmol/L (3.5-5.5); Sodium, Blood 145 mmol/L (136-145)
--- NOTE | 2019-05-01 05:43 | NUR ---
SHIFT SUMMARY PATIENT REMAINS A&OX4. VSS. DROP IN H&H FROM 10.5/31.3 TO 9/27.7. NO CHANGE IN VITAL SIGNS NOTED. PATIENT REPORTED STERNAL PAIN, TORADOL GIVEN WITH ADEQUATE PAIN RELIEF. PATIENT ON RA WITH SATS ABOVE 92%. AFEBRILE. NO OTHER CHANGES AT THIS TIME. WILL CONTINUE TO MONITOR.
--- NOTE | 2019-05-01 07:40 | NUR ---
ASSUMED CARE OF PT AT 0700. REPORT FROM EVAN HUNTER. PT RESTING IN BED. FAMILY AT BEDSIDE. PT A&OX 3. ANSWERS QUESTIONS APPROPRIATELY. FOLLOWS COMMANDS. DENIES COMPLAINTS. LUNGS CLEAR. PT P/W/D. SPEAKING IN FULL SENTANCES. ABD ROUND, SOFT AND NON TENDER. BT X 4. MAEW. ASSISTED PT TO BS, LARGE DARK TARRY STOOL. BACK TO BED. PLAN TO TREND H&H AND TROPONIN TODAY, ENDOSCOPY THIS AFTERNOON. WILL MAINTAIN CLEAR LIQUID DIET, NPO AFTER 1200. WILL CONTINUE TO MONITOR.
--- NOTE | 2019-05-01 09:49 | NUR ---
DR KNAPP IN ROOM FOR ASSESSMENT. PT REPORTS PAIN TO EPIGASTRIC AREA LAST NOC. DENIES PAIN AT THIS TIME. SON REPORTS PT HAD BEEN COMPLAINING OF PAIN FOR 10 DAYS. PT LOCALIZES PAIN TO SUBSTERNAL AREA. PT DENIES SOB. PROTONIX BOLUS GIVE AND GTT STARTED. WILL REPORT TO DR GRIMALDO.
[2019-05-01 11:22] LABS: Hemoglobin 8.8 g/dL (13.5-17.5)
--- NOTE | 2019-05-01 13:29 | NUR ---
Echocardiogram completed.
--- NOTE | 2019-05-01 18:09 | NUR ---
SHIFT SUMMARY PT ASSESSMENT REMAINS UNCHANGED. AFTER TROPONINS TRENDING UP TODAY, CARDIOLOGY CONSULTED, ECHO COMPLETE. ORDER PLACED FOR METOPROLOL AFTER CARDIOLOGY ASSESSMENT. DILLAN POSTPONED ENDOSCOPY UNTIL TOMORROW, TRANSFUSED 1 UNIT [facility]. PROTONIX DRIP STARTED TODAY. VSS. REPORT TO ONCOMING NURSE.
[2019-05-01 19:42] LABS: Hematocrit 29.4 % (37.0-53.0); Hemoglobin 9.9 g/dL (13.5-17.5)
[2019-05-02 05:10] LABS: Hematocrit 29.1 % (37.0-53.0); Hemoglobin 9.6 g/dL (13.5-17.5)
[2019-05-02 05:35] LABS: Anion Gap 8 mmol/L (6-16); Blood Urea Nitrogen 38 mg/dL (8-24); Bun/Creatinine Ratio 45.2 (12.0-20.0); CO2, Blood 20 mmol/L (21-32); Calcium, Blood 8.1 mg/dL (8.5-10.1); Chloride, Blood 118 mmol/L (98-108); Cholesterol 129 mg/dL (50-200); Creatinine, Blood 0.84 mg/dL (0.60-1.20); Glomerular Filtration Rate >60 (60-); Glucose, Blood 146 mg/dL (70-99); Potassium, Blood 3.6 mmol/L (3.5-5.5); Sodium, Blood 146 mmol/L (136-145)
[2019-05-02 05:39] LABS: CHOL/HDL RATIO 3.8; HDL Cholesterol 34 mg/dL (>39); Low Density Lipoprotein Chol 66 mg/dL (0-110); Triglycerides 143 mg/dL (30-160); Troponin I 0.466 ng/mL (0.000-0.040); Very Low Density Lipoprot Chol 28 mg/dL (6-32)
--- NOTE | 2019-05-02 07:52 | NUR ---
SPOKE c DR GARDUNO AND DR GRIMALDO THIS AM. TROPONINS TRENDING DOWN. DR GARDUNO AGREES c PLAN FOR ENDOSCOPY TODAY. NPO AT [address] GRIMALDO FOR 1000 ENDOSCOPY. SON AT BEDSIDE UPDATED.
--- NOTE | 2019-05-02 08:00 | NUR ---
ASSUMED CARE AT 0700. REPORT FROM JING HUNTER. PT RESTING IN BED. WAKES c VERBAL STIMULI. ASSISTED TO BSC. PT c WEAK, STAGGERED GAIT. BACK TO BED. PT ORIENTED TO SELF ONLY. ABLE TO REORIENT TO PLACE AND FAMILY. SON CONCERNED THIS MAYBE D/T TRAMADOL GIVEN LAST NOC. SON REPORTS PT HAD RESTLESS NIGHT. GOT OUT OF BED MULTIPLE TIMES, DIFFICULT TO REDIRECT. REPORTS HX OF SUNDOWNERS. VSS. TROPONINS TRENDING DOWN. H&H STABLE AT THIS TIME. ABD ROUND, SOFT, NON TENDER. BT X 4. WILL CONTINUE TO MONITOR.
--- NOTE | 2019-05-02 10:29 | NUR ---
05/02/19 Cabrera9 Maribel Castillo History, Chart, Medications and Allergies reviewed before start of procedure. Patient confirms NPO status and agrees with scheduled surgery. MONITOR INTACT WITH CONTINUOUS PULSE OXIMETRY AND INTERMITTENT BP. O2 VIA N/C INTACT THROUGHOUT SEDATION/PROCEDURE VIA POM AT 10 L. PATIENT DETERMINED TO BE ASA APPROPRIATE FOR PROPOFOL SEDATION PRIOR TO START OF PROCEDURE BY DR. GRIMALDO
--- NOTE | 2019-05-02 13:41 | NUR ---
SHIFT SUMMARY FROM ICU ENDOSCOPY PERFORMED TODAY. 2 CLIPS PLACED AND CAUTERIZED IN DUODENAL BULB. PT TOLERATED PROCEDURE WELL. CARDIOLOGY SIGNED OFF AFTER TROPONINS TRENDED DOWN. PT ON FULL LIQUID DIET c POOR ORAL INTAKE. REMAINS CONFUSED. A&OX 1, RECOGNIZES FAMILY, NEEDS REORIENTED TO PLACE OFTEN. IRRITABLE. FAMILY REPORTS HX OF SAME DURING PREVIOUS HOSPITALIZATIONS. FOLLOWS COMMANDS. ONE PERSON ASSIST TO BSC. URINATING WELL, PASSING FLATULANCE POST PROCEDURE. REPORT TO BESSY HUNTER IN PCU. ALL BELONGINGS c PT.
--- NOTE | 2019-05-02 14:05 | NUR ---
Pt arrived to room via bed. Transfered to bed with one person assist. Pt oriented to self and family. Disoriented to place, time and situation. States that he is having pain in his neck. Will medicate and treat per orders. Protonix gtt and IVF running per orders. VSS. Family and patient oriented to room, unit, care rounding and POC. Will continue to monitor. Bed alarm on. Call light in reach.
--- NOTE | 2019-05-02 17:55 | NUR ---
Pt resting in bed with family at bedside. Pt seems to be more confused at this time from when he arrived in PCU. Daughter mentioned that she thinks he is sarting to "". Pt breathing seemed to be more labored this afternoon as well. Physician was called and orders to SL IVF. Followed through. Pt refused his full liq. dinner but has drank part of an ensure. Bt had one small BM this afternoon that was black. BT have been hyperactive. Protonix gtt still running. Bed alarm on. Will report to night RN.
--- NOTE | 2019-05-02 19:49 | NUR ---
CARE ASSUMED CARE AND REPORT ASSUMED FROM RODOLFO HUNTER. PT SITTING UP IN CHAIR TALKING WITH FAMILY. ORIENTED TO PLACE, PERSON, FAMILY, DIRECTIONS, AND SELF BUT IS SLOW TO ANSWER QUESTIONS. LUNG SOUNDS CLEAR IN UPPER ANGUIANO WITH FAINT WHEEZES IN BASES. NO SIGNS OF DISTRESS; SPO2 95% ON RA. PROTONIX GTT INFUSING PER ORDER. TOLERATING PO PILLS WITHOUT ANY ISSUES. SIPPING ON ENSURE. DENIES NAUSEA OR ABDOMINAL PAIN. BP WNL. AFEBRILE. WILL CONTINUE TO MONITOR.
--- NOTE | 2019-05-02 23:58 | NUR ---
REASSESSMENT PT REQUESTING TO GET UP TO THE BEDSIDE COMMODE. CONFUSED INTIALLY UPON AWAKENING, BUT EASILY REORIENTED. 1 PERSON ASSIST. VOIDED IN TOILET. DENIES PAIN AT THIS TIME. VSS. TEMP 99.0. PT BACK IN BED AND SLEEPING. PROTONIX GTT INFUSING AT 10 ML/HR PER ORDER. WILL CONTINUE TO MONITOR.
--- NOTE | 2019-05-03 02:35 | NUR ---
FALL PT ATTEMPTED TO FALL OUT OF BED AND WAS FOUND SITTING UPRIGHT ON FLOOR WITH BLEEDING LACERATION ON R FOREHEAD. HE WAS NAKED ON FLOOR, WITH PERIPHERAL IV PULLED OUT. PT CONFUSED AND NEEDED TO BE RE ORIENTED. WAS ASSISTED BACK INTO BED, GOWN REPLACED, AND MD MAN NOTIFIED OF FALL. CURRENTLY MD BEDSIDE FOR SUTURE INSERTION. VSS POST FALL. BED ALARM NOW ON. WILL CONTINUE TO MONITOR SLOWLY.
--- NOTE | 2019-05-03 03:14 | NUR ---
CT SCAN PT TAKEN DOWN TO CT SCAN. TOLERATED WELL. NOW BACK IN ROOM, IN BED, WITH BED ALARM ON. WILL CONTINUE TO MONITOR.
[2019-05-03 04:38] LABS: Hematocrit 28.2 % (37.0-53.0); Hemoglobin 9.3 g/dL (13.5-17.5)
[2019-05-03 04:54] LABS: Anion Gap 5 mmol/L (6-16); Blood Urea Nitrogen 27 mg/dL (8-24); Bun/Creatinine Ratio 28.6 (12.0-20.0); CO2, Blood 23 mmol/L (21-32); Calcium, Blood 8.2 mg/dL (8.5-10.1); Chloride, Blood 117 mmol/L (98-108); Creatinine, Blood 0.94 mg/dL (0.60-1.20); Glomerular Filtration Rate >60 (60-); Glucose, Blood 97 mg/dL (70-99); Potassium, Blood 3.5 mmol/L (3.5-5.5); Sodium, Blood 145 mmol/L (136-145)
[2019-05-03 05:10] LABS: International Normalized Ratio 1.19; Prothrombin Time Results 12.6 Sec (9.7-11.5)
--- NOTE | 2019-05-03 06:14 | NUR ---
SHIFT SUMMARY PT STARTED OUT SHIFT A/O X3, CALM AND APPROPRIATE. THROUGHOUT NIGHT, HE HAS BECOME MORE AND MORE CONFUSED. ZYPREXA ODT GIVEN 3 X DURING SHIFT TO HELP WITH AGITATION AND RESTLESSNESS. AT 0200, PT WAS FOUND ON GROUND IN ROOM WITH BLEEDING LACERATION TO R FOREHEAD. MD NOTIFIED RIGHT AWAY, SUTURES INSERTED BY MD, AND PT TAKEN TO CT FOR HEAD SCAN. PT HAS CONTINUED TO BE RESTLESS IN BED, PULLING ON LEADS AND LINES, AND ATTEMPTING TO CONTINUALLY CLIMB OUT OF BED. LISSETT VEST APPLIED AT 0430. PROTONIX GTT INFUSED ENTIRE NIGHT AND CONTINUES TO INFUSE PER ORDER. REMAINS DIFFICULT TO REORIENT. WILL GIVE BEDSIDE, HANDOFF REPORT TO DAY RN.
--- NOTE | 2019-05-03 06:39 | NUR ---
NOTIFIED OF FALL [phone] - CALLED SKINNY TO NOTIFY OF FALL. MESSAGE LEFT ON HER PHONE ABOUT INCIDENT.
--- NOTE | 2019-05-03 17:24 | NUR ---
SHIFT SUMMARY PT ALERT AND ORIENTED TO SELF, FAMILY AND FOLLOWING DIRECTIONS. VS STABLE. O2 SATS REMAINA ABOVE 90% ON RA. BP STABLE. HR NSR. PT DENIES ANY PAIN. PT WAS IN LISSETT VEST AND BILATERAL WRIST RESTRAINTS THIS AM UPON INITIAL ASSESSMENT, BUT WERE DISCONTINUED. PT IS NOW EASILY REORIENTED. PT FOLLOWING DIRECTIONS. SPEECH IS SLURRED. PT ABLE TO AMBULATE TO BATHROOM WITH 2 ASSIST AND FWW NEEDED TO VOID, BUT HAS OCCASIONAL INCONTINENCE. FAMILY AT BEDSIDE THIS SHIFT. WILL CONTINUE TO MONITOR CLOSELY AND REPORT TO ONCOMING RN.
--- NOTE | 2019-05-03 21:10 | NUR ---
ASSUMED CARE OF PT, REPORT RCV'D FROM ELSA VERGARA. PT RESPONDS TO HIS NAME WITH "HUH" BUT FAILS TO OPEN HIS EYES. PUPILS 3 MM EQUAL AND REACTIVE. PT SQUEEZES HAND AFTER PROMPTING. SPEECH IS SLOW AND SLURRED. PT'S FAMILY AT BEDSIDE STATE "UNTIL THIS MORNING PT'S SPEECH WAS NOT SLURRED". PT APPEARS VERY DROWSY. PER DAYSHIFT NURSE PT IMPULSIVE, BED ALARM ON, DOOR AND CURTAIN OPEN. PT'S FAMILY WILL REMAIN AT BEDSIDE OVERNIGHT. PT FEBRILE WITH TEMP 99.9, ALL ADDITIONAL VSS. SEE FULL SHIFT ASSESSMENT.
--- NOTE | 2019-05-03 23:58 | NUR ---
SPOKE WITH DR. ROMANO REGARDING PT'S EXCESSIVE SLEEPINESS AND NEW ONSET SLURRED SPEECH. ORDER FOR STAT HEAD CT WITHOUT CONTRAST.
--- NOTE | 2019-05-04 00:41 | NUR ---
RADIOLOGY REPORT RCV'D, "NO ACUTE BRAIN FINDINGS". WILL CONTINUE TO MONITOR PATIENT FOR NEW OR WORSENING NEUROLOGICAL SYMPTOMS.
[2019-05-04 04:27] LABS: Hematocrit 27.3 % (37.0-53.0); Hemoglobin 8.9 g/dL (13.5-17.5)
[2019-05-04 04:46] LABS: International Normalized Ratio 1.18; Prothrombin Time Results 12.5 Sec (9.7-11.5)
[2019-05-04 04:48] LABS: Anion Gap 7 mmol/L (6-16); Blood Urea Nitrogen 25 mg/dL (8-24); Bun/Creatinine Ratio 25.5 (12.0-20.0); CO2, Blood 22 mmol/L (21-32); Calcium, Blood 8.2 mg/dL (8.5-10.1); Chloride, Blood 115 mmol/L (98-108); Creatinine, Blood 0.98 mg/dL (0.60-1.20); Glomerular Filtration Rate >60 (60-); Glucose, Blood 102 mg/dL (70-99); Potassium, Blood 3.4 mmol/L (3.5-5.5); Sodium, Blood 144 mmol/L (136-145)
--- NOTE | 2019-05-04 06:11 | NUR ---
PT UNRESPONSIVE TO VERBAL STIMULI AND PAINFUL STIMULI (STERNAL RUB). DR. BOWERS CONTACTED AND UPDATED ON PT STATUS. ORDER FOR 0.4 NARCAN, STAT HEAD CT AND STAT ABG.
[2019-05-04 06:17] LABS: PCO2 Arterial 30.4 mmHg (35-45); PO2 Arterial 66.5 mmHg (80-100); pH Blood Arterial 7.48 (7.35-7.45)
--- NOTE | 2019-05-04 06:48 | NUR ---
PT REMAINS UNRESPONSIVE. PT'S DAUGHTER AT BEDSIDE REQUESTING NO FURTHER MEDICAL INTERVENTION. PER DAUGHTER "FAMILY HAS BEEN CONTACTED" PER FAMILY PT HAS BEEN "PRAYING" AND SAYING THAT HE IS "READY TO GO". VITAL SIGNS REMAIN STABLE. DR. BOWERS UPDATED.
--- NOTE | 2019-05-04 09:30 | NUR ---
UPDATE PT AWAKES FROM SLEEPING ALERT AND ORIENTED. PT ABLE TO IDENTIFY WHERE HE IS AND HIS FAMILY MEMBERS. PT NOW FOLLOWING DIRECTIONS. PT OPENING HIS EYES SPONTANEOUSLY. PT FOLLOWING DIRECTIONS AND ANSWERING QUESTIONS APPROPRIATELY. VS STABLE. HR NSR. PT ABLE TO AMBULATE TO BSC TO VOID WITH 1 ASSIST AND FWW. DIET ADVANCED TO REGULAR. WILL CONTINUE TO MONITOR CLOSELY. FAMILY AT BEDSIDE.
--- NOTE | 2019-05-04 17:59 | NUR ---
SHIFT SUMMARY PT ALERT AND ORIENTED TO SELF, FOLLOWING DIRECTIONS, FAMILY. VS STABLE. HR NSR. BP STABLE. O2 SATS REMAIN ABOVE 90% ON RA. PT DENIES ANY PAIN. PT ABLE TO AMBULATE TO BSC NEEDED TO VOID. PT REPOSITIONED NEEDED. PT TOLERATING PO INTAKE. FAMILY AT BEDSIDE. WILL CONTINUE TO MONITOR AND REPORT TO ONCOMING RN. CALL LIGHT IN REACH.
--- NOTE | 2019-05-04 19:15 | NUR ---
BEDSIDE REPORT RECIEVED FROM JAI OFF GOING RN. MONITOR INTACT SHOWING SINUS RHYTHM HEART RATE 80'S. AROUSES BRIEFLY TO VERBAL STIMULI. LUNG SOUNDS CLEAR UPPER LOBES WITH DECREASED SOUNDS IN TH E BASES. RESPIRATIONS REGULAR AND EASY AT REST BECOMES SOB WITH EXERTION. ABDOMEN SOFT WITH BOWEL SOUNDS FOUR QUADS. ATTENDS IN PLACE. TRACE EDEMA NOTED TO EXTREMITIES PEDAL PULSES PRESENT. CONTINUE TO MONITOR AND REPORT CHANGE IN PATIENT CONDITION
[2019-05-05 05:48] LABS: Hemoglobin 8.7 g/dL (13.5-17.5)
[2019-05-05 06:00] LABS: Anion Gap 10 mmol/L (6-16); Blood Urea Nitrogen 27 mg/dL (8-24); Bun/Creatinine Ratio 23.7 (12.0-20.0); CO2, Blood 22 mmol/L (21-32); Calcium, Blood 7.8 mg/dL (8.5-10.1); Chloride, Blood 113 mmol/L (98-108); Creatinine, Blood 1.14 mg/dL (0.60-1.20); Glomerular Filtration Rate >60 (60-); Glucose, Blood 114 mg/dL (70-99); Potassium, Blood 3.3 mmol/L (3.5-5.5); Sodium, Blood 145 mmol/L (136-145)
--- NOTE | 2019-05-05 06:30 | NUR ---
SHIFT SUMMARY: RESTS QUIETLY WHEN UNDISTURBED AROUSES TO VERBAL STIMULI. MONITOR INTACT SHOWING SINUS RHYTHM HEART RATE 90'S. LUNG SOUNDS CLEAR UPPER LOBES AUDIBLE WHEEZING AT TIMES HOWEVER MAINTAINS SPO2 GREATER THAN 90%. BECIMES DYSPNIC WITH EXERTION. MEDICATED AT 0330 WITH TYLENOL 650MG FOR ABD PAIN AND FYLG558.0. ABDOMEN TENDER. BOWEL SOUNDS FOUR QUADS. WHEN UP TO [facility] [place] WITH TWO ASSIST AND WALKER SMALL AMT BLACK SOFT FORMED STOOL NOTED. FAMILY RE GABRIEL AT BEDSIDE ATTENTIVE TO CARES. CONTINUE TO MONITOR AND REPORT CHANGE IN PATIENT CONDITION. SPEECH SLOW AND SOME WHAT SLURRED HOWEVER ABLE TO CONVERSE AND MAKE DESIRES KNOWN.
--- NOTE | 2019-05-05 09:00 | NUR ---
ASSUMED CARE PT ALERT AND ORIENTED TO SELF, FOLLOWING DIRECTIONS, AND FAMILY. VS STABLE. HR NSR. BP STABLE. PT LETHARGIC, BUT AWAKENING TO VERBAL STIMULI. FAMILY AT BEDSIDE. PT ABLE TO AMBULATE TO BSC NEEDED TO VOID. PT HAD [address] RANDLE AWARE. PT DENIES ANY PAIN. BED ALARM ON. WILL CONTINUE TO MONITOR CLOSELY.
--- NOTE | 2019-05-05 15:40 | NUR ---
UPDATE DR. RANDLE IN WITH PLANS FOR DC TO SNF WITHIN A COUPLE DAYS. ORDERS TO TRANSFER TO MEDICAL FLOOR WITH TELEMETRY. REPORT CALLED TO MEDICAL FLOOR RN. PT TO BE TAKEN UP BY BED.
--- NOTE | 2019-05-05 16:10 | NUR ---
TRANSFER PT TO ROOM 345 FROM PCU VIA BED. PT VERY SLEEPY. PT WILL WAKE UP WHEN NAME SPOKEN BUT GOES BACK TO SLEEP VERY QUICKLY. PT'S SIGNIFICANT OTHER AT BEDSIDE. PT HAS NO COMPLAINTS OF PAIN OR SHORTNESS OF BREATH AT THIS TIME. BED ALARM ON FOR SAFETY AND CALL LIGHT IN REACH. WILL CONTINUE TO MONITOR.
--- NOTE | 2019-05-05 18:05 | NUR ---
SHIFT SUMMARY PT HAS SLEPT SINCE TRANSFERRED TO ROOM 345 FROM PCU THIS EVENING. PT IS AWAKE AT THIS TIME AND EATING DINNER WITH SON'S ASSISTANCE. PT HAS NO COMPLAINTS AT THIS TIME. NO REQUESTS. CALL LIGHT IN REACH AND BED ALARM ON FOR SAFETY. WILL CONTINUE TO MONITOR AND REPORT TO ONCOMING RN.
--- NOTE | 2019-05-05 20:01 | NUR ---
PHILIP IS VISITING WITH HIS FAMILY. THEY ARE ALL CONCERN ABOUT HIS CARE TONIGHT SINCE THE PATIENT FELL ON THE OTHER UNIT. THEY ARE PLANNING ON GETTING HIM TO REHAB AND HOPE HE HAS A GOOD NIGHT SO HE CAN GET THERE. FAMILY ARE RETIRED MEDICAL FEILD AND HAVE GOOD BACKGROUND ON HIS NEEDS. PATIENT IS VERY ANXIOUS THE FAMILY IS ON HIM TO DO GOOD TONIGHT AND NOT MESSING UP. ENCOURAGED HIM TO CALL TONIGHT AND WE WILL ANSWER. INFORMED FAMILY THAT I SIT OUTSIDE OF THE ROOM. SHOWED THE PATIENT AND FAMILY THE CALL LIGHT, AND ENCOURAGED HIM THAT HE WILL BE SAFE HERE. ASSESSMENT COMPLETED PLEASE SEE CHART. WILL CONTINUE TO MONITOR, BED ALARM IS ON.
--- NOTE | 2019-05-06 05:11 | NUR ---
SHIFT SUMMARY: PHILIP HAD A GOOD NIGHT. SON LEFT EARLY IN THE SHIFT. PHILIP FELL ASLEEP UNTIL AROUND 2 THEN AWAKENED. HE WANTED TO WRITE DOWN STEPS ON GETTING HIS FEET BACK TO WORKING. REMINDED HIM THAT HE MIGHT BE GOING TO REHAB AND GETTING PT. HE REPLIED WELL THEN I DON'T HAVE TO FIQURE ANYTHING OUT THEN. HE WAS ABLE TO STATE WHAT OCCURED TO HIM AND WAS MORE ORIENTED THIS MORNING. HE IS VERY WEAK IN THE LEGS, WALKER WAS USED WITH 1 ASSIST TO THE BATHROOM. LUNG SOUNDS WERE DIMINISHED BUT HE IS VERY DYSPENIC EVEN WHILE TALKING. SATS REMAIN IN THE 90'S EVEN THOUGH HE IS VERY LABORED AND WHEEZES ARE NOTED. TELE REPORTED SINUS RHYTHEM ALL NIGHT, NO REPORT OF CHEST PAIN. HAD 1 BLACK TARRY STOOL. VS WERE NORMAL EXCEPT MILD TEMP, WHICH HE SAID HE FELT FINE. CALLED LIGHT REMAINED IN REACH AND USED APPROPRIATLY ALL NIGHT. WILL REPORT TO DAY SHIFT.
[2019-05-06 05:12] LABS: BASOPHILS ABSOLUTE AUTO 0.02 K/mm3 (0.00-0.23); BASOPHILS PERCENT AUTO 0 % (0-2); EOSINOPHILS PERCENT AUTO 4 % (0-6); Hematocrit 27.8 % (37.0-53.0); Hemoglobin 9.2 g/dL (13.5-17.5); IMMATURE GRAN ABSOLUTE AUTO 0.02 K/mm3 (0.00-0.10); IMMATURE GRAN PERCENT AUTO 0 % (0-1); LYMPHOCYTES ABSOLUTE AUTO 1.46 K/mm3 (0.84-5.20); LYMPHOCYTES PERCENT AUTO 31 % (21-46); MONOCYTES ABSOLUTE AUTO 0.84 K/mm3 (0.16-1.47); MONOCYTES PERCENT AUTO 18 % (4-13); Mean Corpuscular HGB 33.3 pg (26.0-34.0); Mean Corpuscular HGB Conc 33.1 g/dL (31.5-36.5); Mean Corpuscular Volume 101 fL (80-100); Mean Platelet Volume 12.2 fL (9.1-12.4); NEUTROPHILS ABSOLUTE AUTO 2.15 K/mm3 (1.96-9.15); NEUTROPHILS PERCENT AUTO 46 % (41-73); Platelet Count 109 K/mm3 (150-400); RDW Coefficient Variation 16.6 % (11.7-14.2); RDW Standard Deviation 57.7 fL (35.1-46.3); Red Blood Cell Count 2.76 M/mm3 (4.30-5.90); White Blood Cell Count 4.69 K/mm3 (4.00-11.30)
[2019-05-06 05:40] LABS: Alanine Aminotransfer (ALT/SGP 14 U/L (12-78); Albumin, Blood 2.4 g/dL (3.4-5.0); Albumin/Globulin Ratio 0.8 (0.8-1.8); Alk Phos 43 U/L (50-136); Anion Gap 6 mmol/L (6-16); Aspartate Aminotrans (AST/SGOT 12 U/L (12-37); Bilirubin, Total 1.1 mg/dL (0.1-1.0); Blood Urea Nitrogen 27 mg/dL (8-24); Bun/Creatinine Ratio 26.2 (12.0-20.0); CO2, Blood 25 mmol/L (21-32); Calcium, Blood 8.1 mg/dL (8.5-10.1); Chloride, Blood 112 mmol/L (98-108); Creatinine, Blood 1.03 mg/dL (0.60-1.20); Globulin, Blood 2.9 g/dL (2.2-4.0); Glomerular Filtration Rate >60 (60-); Glucose, Blood 101 mg/dL (70-99); Potassium, Blood 3.5 mmol/L (3.5-5.5); Sodium, Blood 143 mmol/L (136-145); Total Protein, Blood 5.3 g/dL (6.4-8.2)
[2019-05-07 05:25] LABS: BASOPHILS ABSOLUTE AUTO 0.01 K/mm3 (0.00-0.23); BASOPHILS PERCENT AUTO 0 % (0-2); EOSINOPHILS ABSOLUTE AUTO 0.34 K/mm3 (0.00-0.68); EOSINOPHILS PERCENT AUTO 7 % (0-6); Hematocrit 27.2 % (37.0-53.0); Hemoglobin 8.7 g/dL (13.5-17.5); IMMATURE GRAN ABSOLUTE AUTO 0.04 K/mm3 (0.00-0.10); IMMATURE GRAN PERCENT AUTO 1 % (0-1); LYMPHOCYTES ABSOLUTE AUTO 1.29 K/mm3 (0.84-5.20); LYMPHOCYTES PERCENT AUTO 25 % (21-46); MONOCYTES ABSOLUTE AUTO 1.02 K/mm3 (0.16-1.47); MONOCYTES PERCENT AUTO 20 % (4-13); Mean Corpuscular HGB 32.6 pg (26.0-34.0); Mean Corpuscular Volume 102 fL (80-100); Mean Platelet Volume 12.5 fL (9.1-12.4); NEUTROPHILS ABSOLUTE AUTO 2.53 K/mm3 (1.96-9.15); NEUTROPHILS PERCENT AUTO 48 % (41-73); Platelet Count 120 K/mm3 (150-400); RDW Coefficient Variation 16.6 % (11.7-14.2); RDW Standard Deviation 59.3 fL (35.1-46.3); Red Blood Cell Count 2.67 M/mm3 (4.30-5.90); White Blood Cell Count 5.23 K/mm3 (4.00-11.30)
[2019-05-07 06:02] LABS: Alanine Aminotransfer (ALT/SGP 14 U/L (12-78); Albumin, Blood 2.4 g/dL (3.4-5.0); Albumin/Globulin Ratio 0.8 (0.8-1.8); Alk Phos 45 U/L (50-136); Anion Gap 6 mmol/L (6-16); Aspartate Aminotrans (AST/SGOT 13 U/L (12-37); Bilirubin, Total 0.9 mg/dL (0.1-1.0); Blood Urea Nitrogen 24 mg/dL (8-24); CO2, Blood 24 mmol/L (21-32); Calcium, Blood 8.1 mg/dL (8.5-10.1); Chloride, Blood 113 mmol/L (98-108); Globulin, Blood 2.9 g/dL (2.2-4.0); Glomerular Filtration Rate >60 (60-); Glucose, Blood 101 mg/dL (70-99); Potassium, Blood 3.3 mmol/L (3.5-5.5); Sodium, Blood 143 mmol/L (136-145); Total Protein, Blood 5.3 g/dL (6.4-8.2)
--- NOTE | 2019-05-07 06:21 | NUR ---
EOS: PT SLEPT WELL THIS SHIFT, BUT DID HAVE SOME CONFUSION/SUNDOWNING WTIH HALLUCINATIONS/CONFUSION. PT HAS A 20g IV TO HIS MARY CARMEN. MRI FORM FAXED THIS AM. PT HAS BEEN NPO SINCE MIDNIGHT IN ANTICPATION OF SHEILA HENRY.
--- NOTE | 2019-05-07 17:53 | NUR ---
SHIFT SUMMARY PATIENT A/O X 2-3 AND WAXES/WANES, FAMILY AT BEDSIDE. MRI COMPLETED TODAY. PATIENT WAS INTENDED TO BE D/C TODAY BUT [facility] WILL ACCEPT PATIENT TOMORROW. PATIENT ABLE TO MAKE NEEDS KNOWN. AMBULATES WITH FWW AND GAIT BELT WITH STBY ASSIST. PATIENT ON TELE AND PRESENT WITH SHALLOW/SOB APPEARING RESPIRATIONS THAT FAMILY REPORTS NORMAL. BM'S HAVE BEEN RETURNING TO NORMAL. DIET CHANGES HAVE OCCURED AND PATIENT RECEPTIVE. LN TO CONTINUE TO MONITOR PATIENT.
--- NOTE | 2019-05-08 04:17 | NUR ---
COATER SMOKING PIPE SUMMARY NO ACUTE CHANGES THIS SHIFT. PT AAOX2 WITH INTERMITTENT CONFUSION/FORGETFULNESS. PT SOMETIMES FORGETS HE IS AT THE HOSPITAL. PT HAS RESTED COMFORTABLY THE MAJORITY OF THE SHIFT. LOW GRADE TEMP OF 100 DEGREES WIH AM VITALS. WILL GIVE TYLENOL. OTHER VSS, WILL CONTINUE TO MONITOR.
[2019-05-08 05:32] LABS: BASOPHILS ABSOLUTE AUTO 0.03 K/mm3 (0.00-0.23); BASOPHILS PERCENT AUTO 0 % (0-2); EOSINOPHILS ABSOLUTE AUTO 0.42 K/mm3 (0.00-0.68); EOSINOPHILS PERCENT AUTO 6 % (0-6); Hematocrit 26.4 % (37.0-53.0); Hemoglobin 8.4 g/dL (13.5-17.5); IMMATURE GRAN ABSOLUTE AUTO 0.04 K/mm3 (0.00-0.10); IMMATURE GRAN PERCENT AUTO 1 % (0-1); LYMPHOCYTES PERCENT AUTO 23 % (21-46); MONOCYTES PERCENT AUTO 16 % (4-13); Mean Corpuscular HGB 32.7 pg (26.0-34.0); Mean Corpuscular HGB Conc 31.8 g/dL (31.5-36.5); Mean Corpuscular Volume 103 fL (80-100); NEUTROPHILS ABSOLUTE AUTO 3.79 K/mm3 (1.96-9.15); NEUTROPHILS PERCENT AUTO 54 % (41-73); Platelet Count 143 K/mm3 (150-400); RDW Coefficient Variation 16.6 % (11.7-14.2); RDW Standard Deviation 60.7 fL (35.1-46.3); Red Blood Cell Count 2.57 M/mm3 (4.30-5.90); White Blood Cell Count 6.98 K/mm3 (4.00-11.30)
[2019-05-08 06:04] LABS: Alanine Aminotransfer (ALT/SGP 13 U/L (12-78); Albumin, Blood 2.4 g/dL (3.4-5.0); Albumin/Globulin Ratio 0.9 (0.8-1.8); Alk Phos 45 U/L (50-136); Anion Gap 5 mmol/L (6-16); Aspartate Aminotrans (AST/SGOT 11 U/L (12-37); Bilirubin, Total 0.7 mg/dL (0.1-1.0); Blood Urea Nitrogen 21 mg/dL (8-24); Bun/Creatinine Ratio 23.6 (12.0-20.0); CO2, Blood 25 mmol/L (21-32); Calcium, Blood 7.8 mg/dL (8.5-10.1); Chloride, Blood 114 mmol/L (98-108); Creatinine, Blood 0.89 mg/dL (0.60-1.20); Globulin, Blood 2.8 g/dL (2.2-4.0); Glomerular Filtration Rate >60 (60-); Glucose, Blood 101 mg/dL (70-99); Potassium, Blood 3.4 mmol/L (3.5-5.5); Sodium, Blood 144 mmol/L (136-145); Total Protein, Blood 5.2 g/dL (6.4-8.2)
[2019-05-08 10:11] LABS: Hematocrit 29.3 % (37.0-53.0); Hemoglobin 9.2 g/dL (13.5-17.5)
[2019-05-08 10:32] LABS: Anion Gap 8 mmol/L (6-16); Blood Urea Nitrogen 24 mg/dL (8-24); Bun/Creatinine Ratio 23.8 (12.0-20.0); CO2, Blood 24 mmol/L (21-32); Calcium, Blood 8.1 mg/dL (8.5-10.1); Chloride, Blood 111 mmol/L (98-108); Creatinine, Blood 1.01 mg/dL (0.60-1.20); Glomerular Filtration Rate >60 (60-); Glucose, Blood 157 mg/dL (70-99); Potassium, Blood 3.3 mmol/L (3.5-5.5); Sodium, Blood 143 mmol/L (136-145)
--- NOTE | 2019-05-08 10:40 | NUR ---
PER DR. BISWAS SHE IS OKAY IF PATIENT HAS THIN LIQUIDS. ENCOURAGE 1 SIP AND SWALLOW.
--- NOTE | 2019-05-08 13:30 | NUR ---
SUTURES REMOVED, STERI STRIPS APPLIED PER MD ORDER. STERILE TECHNIQUE UPHELD.
[2019-05-08] MEDS ORDERED: ACET325 PO (13:39)
[2019-05-08] MEDS ORDERED: METO25ER PO (13:40)
[2019-05-08] MEDS ORDERED: PANT40 PO (13:49)
[2019-05-08] MEDS ORDERED: POTA10T PO (13:49)
--- NOTE | 2019-05-08 15:25 | NUR ---
PATIENT DISCHARGED WITH FAMILY. ESCORTED OUT VIA W/C BY [employer]INGER [employer]. EDUCATION REGARDING METOPROLOL CHECKING BLOOD PRESSURE AND FOLLOWING UP WITH PCP GIVEN TO FAMILY.
--- NOTE | 2019-05-08 15:33 | NUR ---
PATIENT DISCHARGED WITH [facility] TRANSFER SERVICE. PATIENT WITH PATIENT AT DISCHARGE.
== END 2019-05-08 14:45 | DRG 377 ==
LOC: ER 12:42 → ICUE 14:20 → PCU 14:20 → MEDS 14:20 → ICUE 15:32 → PCU 05-02 14:05 → MEDS 05-05 15:45 → ENPENDDIS 05-08 12:00 → MEDS 05-08 14:45
PROVIDERS: Emergency Medicine; Family Medicine; Internal Medicine; Internal Medicine Cardiovascular Disease; Internal Medicine Endocrinology, Diabetes & Metabolism; Internal Medicine Gastroenterology; Nurse Practitioner Acute Care; ADMIT Internal Medicine
PROC: 30233K1 Transfusion of Nonautologous Frozen Plasma into Peripheral Vein, Percutaneous Approach (ICD-10-PCS; principal; 2019-04-30)
PROC: 0D568ZZ Destruction of Stomach, Via Natural or Artificial Opening Endoscopic (ICD-10-PCS; 2019-05-02)
PROC: 0W3P8ZZ Control Bleeding in Gastrointestinal Tract, Via Natural or Artificial Opening Endoscopic (ICD-10-PCS; 2019-05-02)
PROC: 0HQ1XZZ Repair Face Skin, External Approach (ICD-10-PCS; 2019-05-03)
DX: K26.4 Chronic or unspecified duodenal ulcer with hemorrhage (principal); I21.4 Non-ST elevation (NSTEMI) myocardial infarction; F05 Delirium due to known physiological condition; Z96.651 Presence of right artificial knee joint; Z90.79 Acquired absence of other genital organ(s); Z79.01 Long term (current) use of anticoagulants; K21.9 Gastro-esophageal reflux disease without esophagitis; J45.909 Unspecified asthma, uncomplicated; M06.9 Rheumatoid arthritis, unspecified; F03.90 Unspecified dementia, unspecified severity, without behavioral disturbance, psychotic disturbance, mood disturbance, and anxiety; N40.0 Benign prostatic hyperplasia without lower urinary tract symptoms; Z66 Do not resuscitate; I10 Essential (primary) hypertension; K44.9 Diaphragmatic hernia without obstruction or gangrene; K22.2 Esophageal obstruction; S01.81XA Laceration without foreign body of other part of head, initial encounter; W18.30XA Fall on same level, unspecified, initial encounter; Y93.9 Activity, unspecified; Y92.239 Unspecified place in hospital as the place of occurrence of the external cause
CPT/HCPCS: 36415; 36430; 36600; 70450; 70551; 71046; 80048; 80053; 80061; 82803; 83880; 84484; 85014; 85018; 85025; 85610; 86850; 86900; 86901; 86923; 92526; 92610; 93005; 93010; 93306; 94640; 94760; 96365; 96375; 97112; 97116; 97162; 97166; 97530; 97535; 99285-25; A9270; C9113; J0360; J0461; J1430; J1885; J2250; J2310; J2405; J2704; J3010; J3430; J7030; J7050; J7120; P9016; P9053